=== PATIENT | female | born 1955 | race Caucasian/White ===

== ENCOUNTER 2018-03-01 08:44 | Emergency (ER) | payer MEDICARE, OTHER ==
[~2018-03-01] VITALS: Ht 154.9 cm; Wt 63.0 kg
[2018-03-01 08:45] VITALS: BP 139/68; PULSE 93; RESP 16; TEMP 98.9; O2SAT 100
[2018-03-01] MEDS ORDERED: SODIUM CHLOR 0.9% 1000 ML INJ 1,000 ML IV SCH (09:07)
--- NOTE | 2018-03-01 09:11 | PD ---
HPI Chief Complaint: Abdominal Pain Time Seen by Provider: 09:04 Travel History International Travel<30 days: No Contact w/Intl Traveler<30days: No Traveled to known affect area: No History of Present Illness HPI Patient is a 62-year-old female presents to the emergency room with complaints of right lower quadrant abdominal pain. Patient reports that she began to have onset of symptoms last night, reports that she woke up this morning with continued right lower quadrant pain with associated fevers and chills. She was initially seen at [facility] and was told to come to the ER for evaluation of possible appendicitis. Patient reports history of hysterectomy due to endometriosis in the past. Patient reports nausea with no vomiting, denies any constipation or diarrhea. PFSH Past Medical History Diminished Hearing: No Fibromyalgia: Yes Immunizations Current: No ?: Not Menopausal: Yes Past Surgical History Hysterectomy: Yes Tonsillectomy: Yes Tympanostomy Tube: Yes Other Surgery: Yes (BREAST AUGMENTATION) Social History Alcohol Use: Yes (occ) Tobacco Use: No Substance Use: No (DENIES ) Allergies-Medications (Allergen,Severity, Reaction): Coded Allergies: iodine (Unverified Allergy, Severe, CHEST PAIN, 03/01/18) potassium iodide (Unverified Allergy, Severe, CHEST PAIN, 03/01/18) povidone-iodine (Unverified Allergy, Severe, CHEST PAIN, 03/01/18) sodium iodide (Unverified Allergy, Severe, CHEST PAIN, 03/01/18) sodium iodide (Unverified Allergy, Severe, CHEST PAIN, 03/01/18) erythromycin base (Unverified Allergy, Intermediate, RASH, 03/01/18) latex (Unverified Allergy, Intermediate, ITCHING/BURNING, 03/01/18) Reported Meds & Prescriptions Reported Meds & Active Scripts Active Reported Diazepam 2 Mg Tab 2 Mg PO HS PRN Magnesium Oxide 500 Mg Tab 1,000 Mg PO DAILY Amitriptyline (Amitriptyline HCl) 25 Mg Tab 25 Mg PO HS Soma (Carisoprodol) 350 Mg Tab 350 Mg PO QID PRN Zolpidem (Zolpidem Tartrate) 10 Mg Tab 10 Mg PO HS PRN Timolol Opth Drops 0.5 % Soln 1 Drop EACH EYE BID Fish Oil + D3 (Fish Oil-Cholecalciferol) 1,200-1,000 Mg-Unit Cap 1 Cap PO DAILY Dhea 25 (Prasterone (DHEA)) 25 Mg Cap 1 Cap PO DAILY Msm (Methylsulfonylmethane) 1,000 Mg Cap 2,000 Mg PO BID Ibuprofen 600 Mg Tab 600 Mg PO Q6H PRN Levothyroxine (Levothyroxine Sodium) 25 Mcg Tab 25 Mcg PO DAILY Liothyronine (Liothyronine Sodium) 5 Mcg Tab 5 Mcg DAILY Atenolol 25 Mg Tab 25 Mg PO DAILY Prednisone 2.5 Mg Tab 2.5 Mg PO DAILY Review of Systems General / Constitutional: Positive: Fever, Chills Eyes: No: Visual changes HENT: No: Headaches Cardiovascular: No: Chest Pain or Discomfort Respiratory: No: Shortness of Breath Gastrointestinal: Positive: Nausea, Abdominal Pain, No: Vomiting Genitourinary: No: Dysuria Musculoskeletal: No: Pain Skin: No Rash Neurologic: No: Weakness Psychiatric: No: Depression Endocrine: No: Polydipsia Hematologic/Lymphatic: No: Easy Bruising Physical Exam Narrative GENERAL: moderate distress SKIN: Focused skin assessment warm/dry. HEAD: Atraumatic. Normocephalic. EYES: Pupils equal and round. No scleral icterus. No injection or drainage. ENT: No nasal bleeding or discharge. Mucous membranes pink and moist. NECK: Trachea midline. No JVD. CARDIOVASCULAR: Regular rate and rhythm. No murmur appreciated. RESPIRATORY: No accessory muscle use. Clear to auscultation. Breath sounds equal bilaterally. GASTROINTESTINAL: Abdomen soft, increased tenderness to RLQ with guarding on exam, nondistended. Hepatic and splenic margins not palpable. MUSCULOSKELETAL: No obvious deformities. No clubbing. No cyanosis. No edema. NEUROLOGICAL: Awake and alert. No obvious cranial nerve deficits. Motor grossly within normal limits. Normal speech. PSYCHIATRIC: Appropriate mood and affect; insight and judgment normal. Data Data Last Documented VS Vital Signs Date Time Temp Pulse Resp B/P (MAP) Pulse Ox O2 Delivery O2 Flow Rate FiO2 03/01/18 09:59 84 26 96 Room Air 03/01/18 08:45 98.9 Orders Orders Complete Blood Count With Diff (03/01/18 09:07) Comprehensive Metabolic Panel (03/01/18 09:07) Lipase (03/01/18 09:07) Prothrombin Time / Inr (Pt) (03/01/18 09:07) Act Partial Throm Time (Ptt) (03/01/18 09:07) Urinalysis - C+S If Indicated (03/01/18 09:07) Iv Access Insert/Monitor (03/01/18 09:07) Ecg Monitoring (03/01/18 09:07) Oximetry (03/01/18 09:07) NPO (03/01/18 09:07) Sodium Chlor 0.9% 1000 Ml Inj (Ns 1000 M (03/01/18 09:07) Sodium Chloride 0.9% Flush (Ns Flush) (03/01/18 09:15) Metoclopramide Inj (Reglan Inj) (03/01/18 09:15) Ct Abd/Pel W/O Iv Contrast (03/01/18 09:20) Labs Laboratory Tests Test 03/01/18 09:30 03/01/18 09:50 White Blood Count 5.7 TH/MM3 Red Blood Count 4.26 MIL/MM3 Hemoglobin 13.2 GM/DL Hematocrit 38.9 % Mean Corpuscular Volume 91.3 FL Mean Corpuscular Hemoglobin 31.1 PG Mean Corpuscular Hemoglobin Concent 34.0 % Red Cell Distribution Width 13.2 % Platelet Count 203 TH/MM3 Mean Platelet Volume 7.7 FL Neutrophils (%) (Auto) 88.6 % Lymphocytes (%) (Auto) 6.5 % Monocytes (%) (Auto) 4.3 % Eosinophils (%) (Auto) 0.4 % Basophils (%) (Auto) 0.2 % Neutrophils # (Auto) 5.0 TH/MM3 Lymphocytes # (Auto) 0.4 TH/MM3 Monocytes # (Auto) 0.2 TH/MM3 Eosinophils # (Auto) 0.0 TH/MM3 Basophils # (Auto) 0.0 TH/MM3 CBC Comment DIFF FINAL Differential Comment Prothrombin Time 10.2 SEC Prothromb Time International Ratio 1.0 RATIO Activated Partial Thromboplast Time 25.2 SEC Blood Urea Nitrogen 18 MG/DL Creatinine 0.78 MG/DL Random Glucose 90 MG/DL Total Protein 7.2 GM/DL Albumin 3.6 GM/DL Calcium Level 9.1 MG/DL Alkaline Phosphatase 77 U/L Aspartate Amino Transf (AST/SGOT) 17 U/L Alanine Aminotransferase (ALT/SGPT) 26 U/L Total Bilirubin 0.5 MG/DL Sodium Level 138 MEQ/L Potassium Level 4.2 MEQ/L Chloride Level 103 MEQ/L Carbon Dioxide Level 26.3 MEQ/L Anion Gap 9 MEQ/L Estimat Glomerular Filtration Rate 75 ML/MIN Lipase 111 U/L Urine Color LIGHT-YELLOW Urine Turbidity CLEAR Urine pH 6.5 Urine Specific [place] 1.004 Urine Protein NEG mg/dL Urine Glucose (UA) NEG mg/dL Urine Ketones NEG mg/dL Urine Occult Blood TRACE Urine Nitrite NEG Urine Bilirubin NEG Urine Urobilinogen LESS THAN 2.0 MG/DL Urine Leukocyte Esterase NEG Urine RBC 1 /hpf Urine WBC LESS THAN 1 /hpf Microscopic Urinalysis Comment CULT NOT INDICATED MDM Medical Decision Making Medical Screen Exam Complete: Yes Emergency Medical Condition: Yes Medical Record Reviewed: Yes Interpretation(s) Vital Signs Date Time Temp Pulse Resp B/P (MAP) Pulse Ox O2 Delivery O2 Flow Rate FiO2 03/01/18 08:45 98.9 93 16 139/68 (91) 100 Differential Diagnosis Appendicitis, cholecystitis, gastroenteritis, gastritis, colitis, pyelonephritis Narrative Course Patient is a 62-year-old female presents the emergency room with complaints of right lower quadrant abdominal pain with associated fevers and chills which began last night. . During the course of the patients emergency department visit, the patients history, examination, and differential diagnosis were reviewed with the patient. The patient was placed on a quality assurance monitor with oximetry and frequent blood pressure monitoring. The patient had an IV access obtained and blood work sent for analysis. The patient was initially provided IVF as well as IV reglan The patients laboratory studies were reviewed and remarkable for CBC & BMP Diagram 03/01/18 09:30 Total Protein 7.2, Albumin 3.6, Calcium Level 9.1, Alkaline Phosphatase 77, Aspartate Amino Transf (AST/SGOT) 17, Alanine Aminotransferase (ALT/SGPT) 26, Total Bilirubin 0.5 Radiology studies were reviewed and remarkable for Last Impressions Abdomen/Pelvis CT 03/01/18 0920 Signed Impressions: CONCLUSION: 1. Grossly unremarkable bowel gas pattern on this examination performed withou t oral or IV contrast. 2. The gallbladder is unremarkable in appearance. 3. No visualized etiology to explain the patient's pain. UA pending Labs and studies reviewed, patient's allergy to IV dye: "My chest closes up on me" Ct of abdomen and pelvis performed without IV dye CT with no etiology to explain her pain. She is afebrile with a wbc 5.7. Ct reviewed with DR. Ibrahim - patient with normal appendix although Patient comfortable emergency room, patient currently requiring no pain medication. Discussed with patient that she could be developing early appendicitis -signs and symptoms of acute abdomen reviewed with patient. Abdomen is soft, nondistended, no peritoneal signs or discharge. She understands when to return to the emergency room. All labs and studies were reviewed with patient in detail, she is thankful for care Diagnosis Primary Impression: Abdominal pain Qualified Codes: R10.31 - Right lower quadrant pain Patient Instructions: General Instructions Additional Instructions: Please provide patient with a copy of their lab work and studies at discharge* * Please follow up with your primary care doctor in 24-48 hours Return to the ER if symptoms worsen or progress Return to the ER as needed Please return to the emergency room immediately if you develop any fevers or chills or progressing/worsening symptoms Disposition: 01 DISCHARGE HOME Condition: Stable Rosanna Banegas DO Mar 01, 2018 09:11
[2018-03-01] MEDS ORDERED: METOCLOPRAMIDE HCL 10 MG/2 ML VIAL IV PUSH ONE (09:15)
[2018-03-01] MEDS ORDERED: SODIUM CHLORIDE 0.9% FLUSH 10 ML FLUSH IV FLUSH PRN (09:15)
[2018-03-01 09:43] LABS: BASOPHIL % 0.2 % (0.0-2.0); EOSINOPHIL % 0.4 % (0.0-4.0); HEMATOCRIT 38.9 % (35.0-46.0); HEMOGLOBIN 13.2 GM/DL (11.6-15.3); LYMPH % 6.5 % (9.0-44.0); LYMPHOCYTE # 0.4 TH/MM3 (1.0-4.8); MEAN CELL VOLUME 91.3 FL (80.0-100.0); MEAN CORPUSCULAR HEMOGLOBIN 31.1 PG (27.0-34.0); MEAN PLATELET VOLUME 7.7 FL (7.0-11.0); MONO % 4.3 % (0.0-8.0); MONOCYTE # 0.2 TH/MM3 (0-0.9); NEUT % 88.6 % (16.0-70.0); PLATELET COUNT 203 TH/MM3 (150-450); RED BLOOD COUNT 4.26 MIL/MM3 (4.00-5.30); RED CELL DISTRIBUTION WIDTH 13.2 % (11.6-17.2); WHITE BLOOD COUNT 5.7 TH/MM3 (4.0-11.0)
[2018-03-01 09:53] LABS: PROTHROMBIN TIME - PATIENT 10.2 SEC (9.8-11.6)
[2018-03-01 09:59] VITALS: PULSE 84; RESP 26; O2SAT 96
[2018-03-01 10:01] LABS: ALBUMIN 3.6 GM/DL (3.4-5.0); AST (GOT) 17 U/L (15-37); BICARBONATE 26.3 MEQ/L (21.0-32.0); BLOOD UREA NITROGEN 18 MG/DL (7-18); CALCIUM 9.1 MG/DL (8.5-10.1); CHLORIDE 103 MEQ/L (98-107); CREATININE 0.78 MG/DL (0.50-1.00); GLOMERULAR FILTRATION RATE 75 ML/MIN (>89); GLUCOSE,RANDOM 90 MG/DL (74-106); SODIUM (NA) 138 MEQ/L (136-145)
[2018-03-01 10:02] LABS: ALT (GPT) 26 U/L (10-53)
[2018-03-01 10:04] LABS: ALKALINE PHOSPHATASE 77 U/L (45-117); TOTAL BILIRUBIN ADULT 0.5 MG/DL (0.2-1.0); TOTAL PROTEIN 7.2 GM/DL (6.4-8.2)
--- NOTE | 2018-03-01 10:09 | RADRPT ---
EXAM DATE: 03/01/2018 9:58 AM EDT AGE/SEX: 62 years / Female INDICATIONS: Patient complains of pain in right lower quadrant abdomen. The patient has a normal whi te blood cell count. CLINICAL DATA: This is the patient's initial encounter. Patient reports that signs and symptoms have been present for 1 day and indicates a pain score of 5/10. MEDICAL/SURGICAL HISTORY: . fibromyalgia. Hysterectomy. RADIATION DOSE: 7.46 CTDI (mGy) COMPARISON: No prior [facility] exams available for comparison. TECHNIQUE: Multiple contiguous axial images were obtained through the abdomen. Images were obtained using multiple row detector helical technique. Using dose reduction techniques, radiation dose was ke pt as low as reasonably achievable to obtain optimal diagnostic quality images. FINDINGS: Lower Lungs: The visualized lower lungs are clear. Liver: The liver has a homogeneous density without space-occupying lesion. There is no dilation of th e biliary tree. The gallbladder is unremarkable appearance. Spleen: Homogeneous density without enlargement. Pancreas: Unremarkable without mass or calcification. Kidneys: Normal in size and shape. No evidence of mass or hydronephrosis. Adrenal Glands: Unremarkable. Aorta: The aorta and proximal iliac vessels are grossly unremarkable without aneurysmal dilation. Bowel/Mesentery: No oral contrast was given limiting the sensitivity of the exam. The bowel loops ar e grossly unremarkable. There is normal limits with no definite inflammatory change. The cecum and si gmoid colon have a normal configuration. Abdominal Wall: Intact. Retroperitoneum: No evidence of adenopathy in the retrocrural, para-aortic, or deep pelvic regions. Bladder: Contours are smooth. Reproductive Organs: No abnormal masses or calcifications seen. Inguinal: The inguinal region is unremarkable without evidence of adenopathy. Bony Structures: Unremarkable. CONCLUSION: 1. Grossly unremarkable bowel gas pattern on this examination performed without oral or IV contrast. 2. The gallbladder is unremarkable in appearance. 3. No visualized etiology to explain the patient's pain. Electronically signed by: Stan Ibrahim MD 03/01/2018 10:08 AM EDT
[2018-03-01] MEDS ORDERED: MSM1000C PO (10:10)
[2018-03-01] MEDS ORDERED: ATEN25TA PO (10:10)
[2018-03-01] MEDS ORDERED: LIOT5TAB3 (10:10)
[2018-03-01] MEDS ORDERED: IBUP-232 PO (10:10)
[2018-03-01] MEDS ORDERED: SOMA350T PO (10:10)
[2018-03-01] MEDS ORDERED: AMIT25TA9 PO (10:10)
[2018-03-01] MEDS ORDERED: DIAZ2TAB PO (10:10)
[2018-03-01] MEDS ORDERED: LEVO25TA4 PO (10:10)
[2018-03-01] MEDS ORDERED: TIMO0.5S30 EACH EYE (10:10)
[2018-03-01] MEDS ORDERED: ZOLP10TA3 PO (10:10)
[2018-03-01] MEDS ORDERED: FISHCAP4 PO (10:10)
[2018-03-01] MEDS ORDERED: PRED2.5T PO (10:10)
[2018-03-01] MEDS ORDERED: PRAS1CAP PO (10:10)
[2018-03-01] MEDS ORDERED: MAGN500T2 PO (10:10)
[2018-03-01 10:26] LABS: BILIRUBIN, URINE NEG (NEG); BLOOD, URINE TRACE (NEG); GLUCOSE,URINE NEG (NEG); KETONE, URINE NEG (NEG); NITRITE,URINE NEG (NEG); PH, URINE 6.5 (5.0-8.5); URINE COLOR LIGHT-YELLOW (YELLW/STRAW); URINE LEUKOCYTE ESTERASE NEG (NEG)
== END 2018-03-01 11:11 | disposition home or self-care (01) ==
LOC: NEPC 08:44
DX: R10.31 Right lower quadrant pain (principal); R11.0 Nausea; M79.7 Fibromyalgia; Z79.899 Other long term (current) drug therapy; Z88.1 Allergy status to other antibiotic agents; Z88.8 Allergy status to other drugs, medicaments and biological substances
CPT/HCPCS: 74176; 80053; 81001; 83690; 85025; 85610; 85730; 96374; 99284; J2765; J7030